=== PATIENT | female | born 1985 | race Caucasian/White ===

== ENCOUNTER 2020-08-08 08:37 | Inpatient (IN) | payer BC, SELFPAY ==
[2020-08-08] VITALS (36 sets, daily range): BP systolic 71–126; BP diastolic 40–78; PULSE 75–128; RESP 16–27; TEMP 36.7–36.9; O2SAT 88–98; BMI 20.7
--- NOTE | 2020-08-08 08:43 | W.ED.CHESTPA ---
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 She tells me on Saturday she began noticing bilateral back pain. 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 She states following that she began developing chest pain and shortness of breath. She states it feels like she has a vice around her chest. Over the weekend she began developing a throbbing headache. She states she does have a history of migraines however this is uncharacteristic. She feels like her headache is worse with bending over. She does not complain of photophobia or visual changes. She reports some mild chronic neck pain but states this is overall at her baseline and is not endorsing neck stiffness. She has had some severe nausea with dry heaves but no active vomiting. She does not complain of abdominal pain or changes in bowel habits. She is not having dysuria, frequency, urgency. She has not had any documented fevers however has noticed feeling diaphoretic and has had chills. Reports severe fatigue and states she has slept much more than usual over the weekend. 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 PMH is significant for ADHD and fibromyalgia. She takes Adderall and [place] for these. MD complaint: chest pain Onset (ago): day(s) Timing of current episode: constant Prior episodes: No Onset: during rest Pain location: other (across and around chest ) Pain radiation: none Quality: tightness Relieving factors: nothing Exacerbating factors: nothing Associated symptoms: Reports dyspnea, nausea and palpitations; Deny abdominal pain, fever(s), syncope or vomiting Treatment prior to arrival: none Risk Factors: Coronary artery disease risk factors: none Thoracic aortic dissection risk factors: none Related Data: On Oral Contraceptives: No Review of Systems Const: Reports: chills, body aches, fatigue and malaise; Denies: fever(s) Eyes: Denies: change in vision, blurry vision or photophobia ENMT: Denies: odynophagia, post nasal drip or sinus pain Card: Reports: chest pain, palpitations and dyspnea on exertion; Denies: irregular heart rhythm, edema, swelling of feet/ankles, lightheadedness, syncope, pre-syncope, orthopnea, leg pain with exertion or acrocyanosis Resp: Reports: dyspnea; Denies: productive cough, non-productive cough, hemoptysis or chest congestion GI: Reports: nausea; Denies: abdominal pain, vomiting or diarrhea : Reports: flank pain; Denies: difficulty voiding, dysuria, urinary frequency, urinary urgency, urinary hesitancy, vaginal odor, vaginal bleeding, vaginal discharge or pelvic pain Musc: Reports: neck pain (chronic) and back pain; Denies: extremity pain, extremity swelling, joint pain or joint swelling Skin/Breast: Denies: rash Neuro: Reports: headache(s); Denies: numbness in extremities, weakness in extremities, sensory changes, lack of coordination, difficulty walking, dizziness or confusion PFSH ED PFSH: Medical History ADHD Fibromyalgia Surgical History (Updated 08/08/20 @ 16:14 by Chuck Troncoso MD) H/O bilateral breast reduction surgery H/O dilation and curettage Family History Other No significant family history Social History Smoking and tobacco status: never smoked Alcohol intake: current Alcohol intake frequency: holidays/special occasions only Substance/Drug Use: never Lives independently: Yes Household members: children Current occupational status: employed Physical Exam Const: COMMON NORMALS: average body habitus, patient oriented x3, no limitations, healthy appearing, alert and well nourished GENERAL APPEARANCE: cooperative and ill appearing ORIENTATION/CONSCIOUSNESS: Yes awake, Yes oriented to person, Yes oriented to place and Yes oriented to time HENMT: COMMON NORMALS: normocephalic, atraumatic and hearing grossly normal bilaterally HEAD & SCALP: normal to inspection, normocephalic and atraumatic FACE & SINUS: normal facial exam Neck/C-Spine: COMMON NORMALS: full ROM, no lymphadenopathy and no meningeal signs CERVICAL SPINE: No Cervical spine tenderness OTHER: pt maintains full ROM of neck although does state this is painful; negative Brudzinski and Kernig signs Chest: COMMONS NORMALS: normal inspection of the chest Resp: COMMON NORMALS: normal respiratory effort and clear to auscultation bilaterally AUSCULTATION: clear to auscultation bilaterally Cardio: COMMON NORMALS: regular rhythm RATE: tachycardic RHYTHM: regular rhythm GI: COMMON NORMALS: Normal to inspection, nondistended, normoactive bowel sounds present, Soft to palpation, No hepatosplenomegaly present and no masses PALPATION: Yes Soft to palpation, Yes Tenderness to palpation present (GI) (mild throughout-non surgical abdomen ) and Yes No hepatosplenomegaly present : BLADDER/KIDNEY EXAM: Yes CVA tenderness bilateral and diffuse Back/Pelvis: GENERAL BACK: Yes CVA tenderness OTHER: TTP bilateral CVA and across lower back Extremity: COMMON NORMALS: normal to inspection, full ROM, capillary refill normal, no calf tenderness and no pedal edema GENERAL: Yes normal exam except as noted Neuro: GIRISH COMA SCALE: document GCS findings Steptoe coma scale eye opening: Spontaneous Steptoe coma scale verbal response: Orientated Steptoe coma scale motor response: Obey commands Girish coma scale total score: 15 COMMON NORMALS: patient oriented x3, CN's II-XII intact bilaterally, moves all extremities, no focal motor deficits and no sensory deficits noted SENSORIUM/ORIENTATION: Yes alert, Yes oriented to person, Yes oriented to place and Yes oriented to time MENINGEAL SIGNS: Yes no meningeal signs SPEECH: speech normal MOTOR EXAM: 5/5 motor strength present throughout Skin: COMMON NORMALS: no rashes or lesions noted GENERAL SKIN EXAM: no rashes or lesions noted Course Vital Signs: Vital signs: Vital Signs Temperature 97.8 F 08/09/20 02:15 Pulse Rate 73 08/09/20 07:00 Respiratory Rate 16 08/09/20 02:12 Blood Pressure 102/69 08/09/20 07:00 Pulse Oximetry 95 08/09/20 07:00 MDM - Chest Pain MDM Narrative: Medical decision making narrative: Patient was noted to have significant abnormalities on her labs. She has leukocytosis. Her lactate was normal however she did have a significantly high CRP of over 400. Her procalcitonin was over 5.5. Her D-dimer is over 4. CTA imaging obtained due to this as well as her complaints of chest pain and shortness of breath as well as clinical findings of tachypnea and tachycardia. CT imaging is negative for PE. She has elevations to her fibrinogen and ferritin. Her glucose was over 250 without a history of diabetes. She had minor decreases in her sodium potassium and chloride. She has acute renal injury. She has nonspecific elevations to her LFTs. Her UA is overwhelmingly positive for a UTI. Clinically she has symptoms related to pyelonephritis. US of her kidneys confirms a right-sided pyelo. Given patient's symptoms, abnormalities of lab work, as well as her employment (she works as an RN) I have a concern for COVID however her rapid was negative. Her CXR is normal. I do not visualize any pulmonary abnormalities that seem consistent with COVID on her CTA. She remains tachycardic and tachypneic as well as hypotensive throughout her stay. Certainly she meets criteria for sepsis. Abnormalities of labs could be secondary to her urosepsis. Patient was started on IV azithromycin and rocephin. I have spoken to Dr. Torres who also evaluated patient and will speak to the hospitalist regarding admission. Lab Data: Labs: Lab Results 08/08/20 08/08/20 08/08/20 Range/Units 08:53 08:53 08:53 WBC 14.9 H (4.0-10.0) 10^3/ uL RBC 3.79 L (4.1-5.3) 10^6/u L Hgb 12.0 (11.5-15.3) g/dL Hct 34.8 L (37.0-47.0) % MCV 91.8 (81-99) fL MCH 31.7 (28.0-34.0) pg MCHC 34.5 (30.0-36.0) g/dL RDW 12.0 L (12.1-15.1) % Plt Count 139 (130-400) 10^3/c mm MPV 11.5 H (7.4-10.4) fL Neut % (Auto) 88.2 % Lymph % (Auto) 3.0 % [place] % (Auto) 6.2 % Eos % (Auto) 1.0 % Baso % (Auto) 0.5 % Neut # (Auto) 13.13 H (1.8-7.7) 10^3/u L Lymph # (Auto) 0.4 L (0.8-4.8) 10^3/u L [place] # (Auto) 0.9 (0.2-0.9) 10^3/u L Eos # (Auto) 0.2 (0.0-0.8) 10^3/u L Baso # (Auto) 0.1 (0.0-0.1) 10^3/u L Nucleated RBC % (a uto) 0 % Nucleated RBCs # 0.0 /100WBC PT (12.1-14.9) SECO NDS INR (0.8-1.2) APTT (23.9-36.7) SECO NDS Fibrinogen (174-498) mg/dL D-Dimer 4.03 H (0-0.59) ug/mIFE U Specimen Type Sample Site ABG pH (7.35-7.45) ABG pCO2 (35-45) mmHg ABG pO2 (80.0-100.0) mmH g ABG HCO3 (22-26) mmol/L ABG O2 Saturation ABG Base Excess (-2.0-2.0) mmol/ L Yayo Test A-a O2 Gradient (5-10) mmHg Hematocrit (37-47) % Hgb O2 Saturation (95-100) % Carboxyhemoglobin (0.4-20.1) %THgb Methemoglobin (0.4-1.5) % Total Hemoglobin (12-16) g/dL Ionized Calcium (1.1-1.4) mmol/L O2 Delivery Device FiO2 % Marketing Traffic Coordinator ID Sodium 132 L (136-145) mmol/L Potassium 3.2 L (3.5-5.1) mmol/L Chloride 96 L (98-107) mmol/L Carbon Dioxide 18 L (22-29) mmol/L Anion Gap 21.2 H (5-19) BUN 17 (6-20) mg/dL Creatinine 1.6 H (0.5-0.9) mg/dL GFR Calculation 37.4 L (90-130) mL/min Glucose 256 H (65-115) mg/dL Estimat Average Gl ucose Hemoglobin A1c (4.0-6.0) % Calculated Osmolal ity 284 L (285-295) mOsm/k g Lactic Acid (0.5-2.2) mmol/L Lactic Acid (Sepsi s) (0.5-2.2) mmol/L Calcium 8.5 (8.5-10.5) mg/dL Ferritin (15-150) ng/mL Total Bilirubin 1.3 H (0.15-1.2) mg/dL AST 19 (0-32) U/L ALT 46 H (0-33) U/L Alkaline Phosphata se 155 H (35-105) IU/L Creatine Kinase (26-192) U/L Troponin T Gen 5 n g/L (0-10) ng/L C-Reactive Protein 426.7 H (0.0-4.9) mg/L Total Protein 6.7 (6.6-8.7) g/dL Albumin 3.7 (3.5-5.2) g/dL Globulin 3.0 (1.3-4.6) g/dL Procalcitonin 5.53 H (0-0.5) ng/mL HCG, Qual (Negative) Urine Color (Yellow) Urine Appearance (CLEAR) Urine pH (5-7) Ur Specific Gravit y (1.005-1.030) Urine Protein (Negative) Urine Glucose (UA) (Normal) Urine Ketones (Negative) Urine Blood (Negative) Urine Nitrate (Negative) Urine Bilirubin (Negative) Urine Urobilinogen (Negative) mg/dL Ur Leukocyte Stacie ase (Negative) Ur Microscopic Ind ic Urine RBC (0-2) /hpf Urine WBC (0-5) /hpf Ur Squamous Epith Cells (0-5) /hpf Ur Transition Epit h Cell /hpf Amorphous Sediment Urine Bacteria (NONE) /hpf Serum Ketones (Negative) Hepatitis A IgM Ab (Nonreactive) Hep Bs Antigen (Nonreactive) Hep B Core IgM Ab (Nonreactive) Hepatitis C Antibo dy (Nonreactive) Influenza Type A A g (Negative) Influenza Type B A g (Negative) SARS-CoV-2 Ag (Rap id) (Negative) 08/08/20 08/08/20 08/08/20 Range/Units 08:53 08:53 08:53 WBC (4.0-10.0) 10^3/ uL RBC (4.1-5.3) 10^6/u L Hgb (11.5-15.3) g/dL Hct (37.0-47.0) % MCV (81-99) fL MCH (28.0-34.0) pg MCHC (30.0-36.0) g/dL RDW (12.1-15.1) % Plt Count (130-400) 10^3/c mm MPV (7.4-10.4) fL Neut % (Auto) % Lymph % (Auto) % [place] % (Auto) % Eos % (Auto) % Baso % (Auto) % Neut # (Auto) (1.8-7.7) 10^3/u L Lymph # (Auto) (0.8-4.8) 10^3/u L [place] # (Auto) (0.2-0.9) 10^3/u L Eos # (Auto) (0.0-0.8) 10^3/u L Baso # (Auto) (0.0-0.1) 10^3/u L Nucleated RBC % (a uto) % Nucleated RBCs # /100WBC PT 13.20 (12.1-14.9) SECO NDS INR 0.97 (0.8-1.2) APTT 36.6 (23.9-36.7) SECO NDS Fibrinogen 855 H (174-498) mg/dL D-Dimer (0-0.59) ug/mIFE U Specimen Type Sample Site ABG pH (7.35-7.45) ABG pCO2 (35-45) mmHg ABG pO2 (80.0-100.0) mmH g ABG HCO3 (22-26) mmol/L ABG O2 Saturation ABG Base Excess (-2.0-2.0) mmol/ L Yayo Test A-a O2 Gradient (5-10) mmHg Hematocrit (37-47) % Hgb O2 Saturation (95-100) % Carboxyhemoglobin (0.4-20.1) %THgb Methemoglobin (0.4-1.5) % Total Hemoglobin (12-16) g/dL Ionized Calcium (1.1-1.4) mmol/L O2 Delivery Device FiO2 % Marketing Traffic Coordinator ID Sodium (136-145) mmol/L Potassium (3.5-5.1) mmol/L Chloride (98-107) mmol/L Carbon Dioxide (22-29) mmol/L Anion Gap (5-19) BUN (6-20) mg/dL Creatinine (0.5-0.9) mg/dL GFR Calculation (90-130) mL/min Glucose (65-115) mg/dL Estimat Average Gl ucose Hemoglobin A1c (4.0-6.0) % Calculated Osmolal ity (285-295) mOsm/k g Lactic Acid (0.5-2.2) mmol/L Lactic Acid (Sepsi s) (0.5-2.2) mmol/L Calcium (8.5-10.5) mg/dL Ferritin (15-150) ng/mL Total Bilirubin (0.15-1.2) mg/dL AST (0-32) U/L ALT (0-33) U/L Alkaline Phosphata se (35-105) IU/L Creatine Kinase (26-192) U/L Troponin T Gen 5 n g/L 6 (0-10) ng/L C-Reactive Protein (0.0-4.9) mg/L Total Protein (6.6-8.7) g/dL Albumin (3.5-5.2) g/dL Globulin (1.3-4.6) g/dL Procalcitonin (0-0.5) ng/mL HCG, Qual Negative (Negative) Urine Color (Yellow) Urine Appearance (CLEAR) Urine pH (5-7) Ur Specific Gravit y (1.005-1.030) Urine Protein (Negative) Urine Glucose (UA) (Normal) Urine Ketones (Negative) Urine Blood (Negative) Urine Nitrate (Negative) Urine Bilirubin (Negative) Urine Urobilinogen (Negative) mg/dL Ur Leukocyte Stacie ase (Negative) Ur Microscopic Ind ic Urine RBC (0-2) /hpf Urine WBC (0-5) /hpf Ur Squamous Epith Cells (0-5) /hpf Ur Transition Epit h Cell /hpf Amorphous Sediment Urine Bacteria (NONE) /hpf Serum Ketones (Negative) Hepatitis A IgM Ab (Nonreactive) Hep Bs Antigen (Nonreactive) Hep B Core IgM Ab (Nonreactive) Hepatitis C Antibo dy (Nonreactive) Influenza Type A A g (Negative) Influenza Type B A g (Negative) SARS-CoV-2 Ag (Rap id) (Negative) 08/08/20 08/08/20 08/08/20 Range/Units 08:53 08:53 08:53 WBC (4.0-10.0) 10^3/ uL RBC (4.1-5.3) 10^6/u L Hgb (11.5-15.3) g/dL Hct (37.0-47.0) % MCV (81-99) fL MCH (28.0-34.0) pg MCHC (30.0-36.0) g/dL RDW (12.1-15.1) % Plt Count (130-400) 10^3/c mm MPV (7.4-10.4) fL Neut % (Auto) % Lymph % (Auto) % [place] % (Auto) % Eos % (Auto) % Baso % (Auto) % Neut # (Auto) (1.8-7.7) 10^3/u L Lymph # (Auto) (0.8-4.8) 10^3/u L [place] # (Auto) (0.2-0.9) 10^3/u L Eos # (Auto) (0.0-0.8) 10^3/u L Baso # (Auto) (0.0-0.1) 10^3/u L Nucleated RBC % (a uto) % Nucleated RBCs # /100WBC PT (12.1-14.9) SECO NDS INR (0.8-1.2) APTT (23.9-36.7) SECO NDS Fibrinogen (174-498) mg/dL D-Dimer (0-0.59) ug/mIFE U Specimen Type Sample Site ABG pH (7.35-7.45) ABG pCO2 (35-45) mmHg ABG pO2 (80.0-100.0) mmH g ABG HCO3 (22-26) mmol/L ABG O2 Saturation ABG Base Excess (-2.0-2.0) mmol/ L Yayo Test A-a O2 Gradient (5-10) mmHg Hematocrit (37-47) % Hgb O2 Saturation (95-100) % Carboxyhemoglobin (0.4-20.1) %THgb Methemoglobin (0.4-1.5) % Total Hemoglobin (12-16) g/dL Ionized Calcium (1.1-1.4) mmol/L O2 Delivery Device FiO2 % Marketing Traffic Coordinator ID Sodium (136-145) mmol/L Potassium (3.5-5.1) mmol/L Chloride (98-107) mmol/L Carbon Dioxide (22-29) mmol/L Anion Gap (5-19) BUN (6-20) mg/dL Creatinine (0.5-0.9) mg/dL GFR Calculation (90-130) mL/min Glucose (65-115) mg/dL Estimat Average Gl ucose 88 Hemoglobin A1c 4.7 (4.0-6.0) % Calculated Osmolal ity (285-295) mOsm/k g Lactic Acid (0.5-2.2) mmol/L Lactic Acid (Sepsi s) (0.5-2.2) mmol/L Calcium (8.5-10.5) mg/dL Ferritin (15-150) ng/mL Total Bilirubin (0.15-1.2) mg/dL AST (0-32) U/L ALT (0-33) U/L Alkaline Phosphata se (35-105) IU/L Creatine Kinase (26-192) U/L Troponin T Gen 5 n g/L (0-10) ng/L C-Reactive Protein (0.0-4.9) mg/L Total Protein (6.6-8.7) g/dL Albumin (3.5-5.2) g/dL Globulin (1.3-4.6) g/dL Procalcitonin (0-0.5) ng/mL HCG, Qual (Negative) Urine Color (Yellow) Urine Appearance (CLEAR) Urine pH (5-7) Ur Specific Gravit y (1.005-1.030) Urine Protein (Negative) Urine Glucose (UA) (Normal) Urine Ketones (Negative) Urine Blood (Negative) Urine Nitrate (Negative) Urine Bilirubin (Negative) Urine Urobilinogen (Negative) mg/dL Ur Leukocyte Stacie ase (Negative) Ur Microscopic Ind ic Urine RBC (0-2) /hpf Urine WBC (0-5) /hpf Ur Squamous Epith Cells (0-5) /hpf Ur Transition Epit h Cell /hpf Amorphous Sediment Urine Bacteria (NONE) /hpf Serum Ketones Negative (Negative) Hepatitis A IgM Ab Non-reactive (Nonreactive) Hep Bs Antigen Non-reactive (Nonreactive) Hep B Core IgM Ab Non-reactive (Nonreactive) Hepatitis C Antibo dy Non-reactive (Nonreactive) Influenza Type A A g (Negative) Influenza Type B A g (Negative) SARS-CoV-2 Ag (Rap id) (Negative) 08/08/20 08/08/20 08/08/20 Range/Units 08:53 08:57 09:08 WBC (4.0-10.0) 10^3/ uL RBC (4.1-5.3) 10^6/u L Hgb (11.5-15.3) g/dL Hct (37.0-47.0) % MCV (81-99) fL MCH (28.0-34.0) pg MCHC (30.0-36.0) g/dL RDW (12.1-15.1) % Plt Count (130-400) 10^3/c mm MPV (7.4-10.4) fL Neut % (Auto) % Lymph % (Auto) % [place] % (Auto) % Eos % (Auto) % Baso % (Auto) % Neut # (Auto) (1.8-7.7) 10^3/u L Lymph # (Auto) (0.8-4.8) 10^3/u L [place] # (Auto) (0.2-0.9) 10^3/u L Eos # (Auto) (0.0-0.8) 10^3/u L Baso # (Auto) (0.0-0.1) 10^3/u L Nucleated RBC % (a uto) % Nucleated RBCs # /100WBC PT (12.1-14.9) SECO NDS INR (0.8-1.2) APTT (23.9-36.7) SECO NDS Fibrinogen (174-498) mg/dL D-Dimer (0-0.59) ug/mIFE U Specimen Type Sample Site ABG pH (7.35-7.45) ABG pCO2 (35-45) mmHg ABG pO2 (80.0-100.0) mmH g ABG HCO3 (22-26) mmol/L ABG O2 Saturation ABG Base Excess (-2.0-2.0) mmol/ L Yayo Test A-a O2 Gradient (5-10) mmHg Hematocrit (37-47) % Hgb O2 Saturation (95-100) % Carboxyhemoglobin (0.4-20.1) %THgb Methemoglobin (0.4-1.5) % Total Hemoglobin (12-16) g/dL Ionized Calcium (1.1-1.4) mmol/L O2 Delivery Device FiO2 % Marketing Traffic Coordinator ID Sodium (136-145) mmol/L Potassium (3.5-5.1) mmol/L Chloride (98-107) mmol/L Carbon Dioxide (22-29) mmol/L Anion Gap (5-19) BUN (6-20) mg/dL Creatinine (0.5-0.9) mg/dL GFR Calculation (90-130) mL/min Glucose (65-115) mg/dL Estimat Average Gl ucose Hemoglobin A1c (4.0-6.0) % Calculated Osmolal ity (285-295) mOsm/k g Lactic Acid (0.5-2.2) mmol/L Lactic Acid (Sepsi s) (0.5-2.2) mmol/L Calcium (8.5-10.5) mg/dL Ferritin 306 H (15-150) ng/mL Total Bilirubin (0.15-1.2) mg/dL AST (0-32) U/L ALT (0-33) U/L Alkaline Phosphata se (35-105) IU/L Creatine Kinase 38 (26-192) U/L Troponin T Gen 5 n g/L (0-10) ng/L C-Reactive Protein (0.0-4.9) mg/L Total Protein (6.6-8.7) g/dL Albumin (3.5-5.2) g/dL Globulin (1.3-4.6) g/dL Procalcitonin (0-0.5) ng/mL HCG, Qual (Negative) Urine Color Yellow (Yellow) Urine Appearance Cloudy (CLEAR) Urine pH 5 (5-7) Ur Specific Gravit y 1.010 (1.005-1.030) Urine Protein 2+ H (Negative) Urine Glucose (UA) Norm (Normal) Urine Ketones Negative (Negative) Urine Blood 3+ H (Negative) Urine Nitrate Negative (Negative) Urine Bilirubin Neg (Negative) Urine Urobilinogen Norm (Negative) mg/dL Ur Leukocyte Stacie ase 2+ H (Negative) Ur Microscopic Ind ic Urine RBC 0-4 H (0-2) /hpf Urine WBC Too numerous to c nt H (0-5) /hpf Ur Squamous Epith Cells 25-40 H (0-5) /hpf Ur Transition Epit h Cell /hpf Amorphous Sediment Not Reportable Urine Bacteria 2+ H (NONE) /hpf Serum Ketones (Negative) Hepatitis A IgM Ab (Nonreactive) Hep Bs Antigen (Nonreactive) Hep B Core IgM Ab (Nonreactive) Hepatitis C Antibo dy (Nonreactive) Influenza Type A A g (Negative) Influenza Type B A g (Negative) SARS-CoV-2 Ag (Rap id) (Negative) 08/08/20 08/08/20 08/08/20 Range/Units 09:34 09:39 10:58 WBC (4.0-10.0) 10^3/ uL RBC (4.1-5.3) 10^6/u L Hgb (11.5-15.3) g/dL Hct (37.0-47.0) % MCV (81-99) fL MCH (28.0-34.0) pg MCHC (30.0-36.0) g/dL RDW (12.1-15.1) % Plt Count (130-400) 10^3/c mm MPV (7.4-10.4) fL Neut % (Auto) % Lymph % (Auto) % [place] % (Auto) % Eos % (Auto) % Baso % (Auto) % Neut # (Auto) (1.8-7.7) 10^3/u L Lymph # (Auto) (0.8-4.8) 10^3/u L [place] # (Auto) (0.2-0.9) 10^3/u L Eos # (Auto) (0.0-0.8) 10^3/u L Baso # (Auto) (0.0-0.1) 10^3/u L Nucleated RBC % (a uto) % Nucleated RBCs # /100WBC PT (12.1-14.9) SECO NDS INR (0.8-1.2) APTT (23.9-36.7) SECO NDS Fibrinogen (174-498) mg/dL D-Dimer (0-0.59) ug/mIFE U Specimen Type Sample Site ABG pH (7.35-7.45) ABG pCO2 (35-45) mmHg ABG pO2 (80.0-100.0) mmH g ABG HCO3 (22-26) mmol/L ABG O2 Saturation ABG Base Excess (-2.0-2.0) mmol/ L Yayo Test A-a O2 Gradient (5-10) mmHg Hematocrit (37-47) % Hgb O2 Saturation (95-100) % Carboxyhemoglobin (0.4-20.1) %THgb Methemoglobin (0.4-1.5) % Total Hemoglobin (12-16) g/dL Ionized Calcium (1.1-1.4) mmol/L O2 Delivery Device FiO2 % Marketing Traffic Coordinator ID Sodium (136-145) mmol/L Potassium (3.5-5.1) mmol/L Chloride (98-107) mmol/L Carbon Dioxide (22-29) mmol/L Anion Gap (5-19) BUN (6-20) mg/dL Creatinine (0.5-0.9) mg/dL GFR Calculation (90-130) mL/min Glucose (65-115) mg/dL Estimat Average Gl ucose Hemoglobin A1c (4.0-6.0) % Calculated Osmolal ity (285-295) mOsm/k g Lactic Acid 2.2 (0.5-2.2) mmol/L Lactic Acid (Sepsi s) (0.5-2.2) mmol/L Calcium (8.5-10.5) mg/dL Ferritin (15-150) ng/mL Total Bilirubin (0.15-1.2) mg/dL AST (0-32) U/L ALT (0-33) U/L Alkaline Phosphata se (35-105) IU/L Creatine Kinase (26-192) U/L Troponin T Gen 5 n g/L (0-10) ng/L C-Reactive Protein (0.0-4.9) mg/L Total Protein (6.6-8.7) g/dL Albumin (3.5-5.2) g/dL Globulin (1.3-4.6) g/dL Procalcitonin (0-0.5) ng/mL HCG, Qual (Negative) Urine Color (Yellow) Urine Appearance (CLEAR) Urine pH (5-7) Ur Specific Gravit y (1.005-1.030) Urine Protein (Negative) Urine Glucose (UA) (Normal) Urine Ketones (Negative) Urine Blood (Negative) Urine Nitrate (Negative) Urine Bilirubin (Negative) Urine Urobilinogen (Negative) mg/dL Ur Leukocyte Stacie ase (Negative) Ur Microscopic Ind ic Urine RBC (0-2) /hpf Urine WBC (0-5) /hpf Ur Squamous Epith Cells (0-5) /hpf Ur Transition Epit h Cell /hpf Amorphous Sediment Urine Bacteria (NONE) /hpf Serum Ketones (Negative) Hepatitis A IgM Ab (Nonreactive) Hep Bs Antigen (Nonreactive) Hep B Core IgM Ab (Nonreactive) Hepatitis C Antibo dy (Nonreactive) Influenza Type A A g Negative (Negative) Influenza Type B A g Negative (Negative) SARS-CoV-2 Ag (Rap id) Negative (Negative) 08/08/20 08/08/20 08/08/20 Range/Units 11:51 12:27 12:27 WBC (4.0-10.0) 10^3/ uL RBC (4.1-5.3) 10^6/u L Hgb (11.5-15.3) g/dL Hct (37.0-47.0) % MCV (81-99) fL MCH (28.0-34.0) pg MCHC (30.0-36.0) g/dL RDW (12.1-15.1) % Plt Count (130-400) 10^3/c mm MPV (7.4-10.4) fL Neut % (Auto) % Lymph % (Auto) % [place] % (Auto) % Eos % (Auto) % Baso % (Auto) % Neut # (Auto) (1.8-7.7) 10^3/u L Lymph # (Auto) (0.8-4.8) 10^3/u L [place] # (Auto) (0.2-0.9) 10^3/u L Eos # (Auto) (0.0-0.8) 10^3/u L Baso # (Auto) (0.0-0.1) 10^3/u L Nucleated RBC % (a uto) % Nucleated RBCs # /100WBC PT (12.1-14.9) SECO NDS INR (0.8-1.2) APTT (23.9-36.7) SECO NDS Fibrinogen (174-498) mg/dL D-Dimer (0-0.59) ug/mIFE U Specimen Type Arterial Sample Site Radial, right ABG pH 7.34 L (7.35-7.45) ABG pCO2 27.6 L (35-45) mmHg ABG pO2 83.0 (80.0-100.0) mmH g ABG HCO3 14.8 L (22-26) mmol/L ABG O2 Saturation 96.9 ABG Base Excess -9.5 L (-2.0-2.0) mmol/ L [place] Test Pos A-a O2 Gradient 4.0 L (5-10) mmHg Hematocrit 39.4 (37-47) % Hgb O2 Saturation 95.6 (95-100) % Carboxyhemoglobin 0.6 (0.4-20.1) %THgb Methemoglobin 0.9 (0.4-1.5) % Total Hemoglobin 12.8 (12-16) g/dL Ionized Calcium 1.1 (1.1-1.4) mmol/L O2 Delivery Device Room air FiO2 21.0 % Marketing Traffic Coordinator ID [email or web address] Sodium 136.0 (136-145) mmol/L Potassium 4.3 (3.5-5.1) mmol/L Chloride (98-107) mmol/L Carbon Dioxide (22-29) mmol/L Anion Gap (5-19) BUN (6-20) mg/dL Creatinine (0.5-0.9) mg/dL GFR Calculation (90-130) mL/min Glucose 163.0 H (65-115) mg/dL Estimat Average Gl ucose Hemoglobin A1c (4.0-6.0) % Calculated Osmolal ity (285-295) mOsm/k g Lactic Acid (0.5-2.2) mmol/L Lactic Acid (Sepsi s) 1.3 (0.5-2.2) mmol/L Calcium (8.5-10.5) mg/dL Ferritin (15-150) ng/mL Total Bilirubin (0.15-1.2) mg/dL AST (0-32) U/L ALT (0-33) U/L Alkaline Phosphata se (35-105) IU/L Creatine Kinase (26-192) U/L Troponin T Gen 5 n g/L (0-10) ng/L C-Reactive Protein (0.0-4.9) mg/L Total Protein (6.6-8.7) g/dL Albumin (3.5-5.2) g/dL Globulin (1.3-4.6) g/dL Procalcitonin (0-0.5) ng/mL HCG, Qual (Negative) Urine Color Yellow (Yellow) Urine Appearance Hazy A (CLEAR) Urine pH 5 (5-7) Ur Specific Gravit y 1.000 L (1.005-1.030) Urine Protein 1+ H (Negative) Urine Glucose (UA) Norm (Normal) Urine Ketones Negative (Negative) Urine Blood 2+ H (Negative) Urine Nitrate Positive H (Negative) Urine Bilirubin Neg (Negative) Urine Urobilinogen Norm (Negative) mg/dL Ur Leukocyte Stacie ase 2+ H (Negative) Ur Microscopic Ind ic Cancelled Urine RBC 0-4 H (0-2) /hpf Urine WBC >100 H (0-5) /hpf Ur Squamous Epith Cells 0-4 H (0-5) /hpf Ur Transition Epit h Cell 0-4 /hpf Amorphous Sediment Not Reportable Urine Bacteria 2+ H (NONE) /hpf Serum Ketones (Negative) Hepatitis A IgM Ab (Nonreactive) Hep Bs Antigen (Nonreactive) Hep B Core IgM Ab (Nonreactive) Hepatitis C Antibo dy (Nonreactive) Influenza Type A A g (Negative) Influenza Type B A g (Negative) SARS-CoV-2 Ag (Rap id) (Negative) Imaging Data^: CXR: Radiologist's impression: [address] [address] XRay Report Signed Patient: Ranjith Cordero #: [id number] : 1985Acct#:[id number] Age/Sex: 34 / FADM Date: 08/08/20 Loc: ERRoom/Bed: Attending Dr: Ordering Provider/Ordering MD: Stephanie Aguirre Date of Service: 08/08/20 Procedure(s): XR chest 1V portable [id number] Accession Number(s): [id number] Report Number: [id number] WS: [id number] PORTABLE CHEST HISTORY: chest pain/SOB COMPARISON: None available. Lungs are clear and well expanded. No pleural effusion or pneumothorax. Cardiac size: Normal. Mediastinum/Aorta: Normal mediastinum. No osseous abnormality seen. XR/XR chest 1V portable [id number] IMPRESSION: Unremarkable portable chest. Dictated By:Virginie West DO Signed By:Virginie West DOSigned Date/Time:08/08/20922 DD/ 2 CT Head: Radiologist's impression: [address] [address] [address] Scan Report Signed Patient: Ranjith Cordero #: [id number] : 1985Acct#:[id number] Age/Sex: 34 / FADM Date: 08/08/20 Loc: ERRoom/Bed: Attending Dr: Ordering Provider/Ordering MD: Stephanie Aguirre Date of Service: 08/08/20 Procedure(s): CT head wo con* [id number] Accession Number(s): [id number] Report Number: [id number] WS: [id number] CT HEAD NONCONTRAST HISTORY: SKINNER; sweats/chills; worse with bending over TECHNIQUE: Contiguous axial imaging performed through the brain in 2.5 mm imaging. Bone and soft tissue windows. Sagittal and coronal reformats reviewed. All CT scans at [facility] use at least one of these dose optimization techniques: automated exposure control; mA and/or kV adjustment per patient size (includes targeted exams where dose is matched to clinical indication); or iterative reconstruction. DLP: 762.43 mGy.cm COMPARISON: None available. No acute intracranial hemorrhage, midline shift or mass effect. No atrophy or prior infarcts or herniation. Ventricles: Normal size with no hydrocephalus. Paranasal sinuses: As visualized are clear. Mastoid air cells: Well pneumatized. Calvarium and scalp: Skull is intact with no soft tissue edema or swelling. CT/CT head wo con* [id number] IMPRESSION: Negative head CT. Dictated By:Virginie West DO Signed By:Virginie West DOSigned Date/Time:08/08/20 0933 DD/ 0931 CTA Chest: Radiologist's impression: [facility] [address] [place] [address] [address] Scan Report Signed Patient: Ranjith Cordero #: [id number] : 1985Acct#:[id number] Age/Sex: 34 / FADM Date: 08/08/20 Loc: ERRoom/Bed: Attending Dr: Ordering Provider/Ordering MD: Stephanie Aguirre Date of Service: 08/08/20 Procedure(s): CT angio chest PE protcl [id number] Accession Number(s): [id number] Report Number: [id number] WS: [id number] CT CHEST ANGIOGRAPHY WITH REFORMATS HISTORY: chest pain, SOB, tachycardia; elevated d dimer TECHNIQUE: Contiguous axial images are obtained through the chest during arterial injection of intravenous contrast. Images are reconstructed to evaluate the pulmonary arteries. MIP imaging also reviewed. All CT scans at [facility] use at least one of these dose optimization techniques: automated exposure control; mA and/or kV adjustment per patient size (includes targeted exams where dose is matched to clinical indication); or iterative reconstruction. CONTRAST: Omnipaque 350; 95 mL IV. DLP: 384.97 mGy.cm COMPARISON: None available. Adequate opacification of the pulmonary arteries. Centrally through the segmental branches no pulmonary embolism is identified. Thoracic aorta and pulmonary artery sizes are normal. No RIGHT heart strain. No pericardial or pleural effusion. Lungs are clear. No pneumothorax or pneumonia. No adenopathy. Liver is enlarged extending across the midline. Spleen is top normal size. No osteoblastic or osteolytic bone disease. CT/CT angio chest PE protcl [id number] IMPRESSION: 1. No pulmonary embolism. 2. No pneumonia. 3. Enlarged liver. No bile duct dilatation appreciated. Ultrasound evaluation may be helpful. Dictated By:Virginie West DO Signed By:Virginie West DOSigned Date/Time:08/08/20 1042 DD/ 1037 US renal: Radiologist's impression: [facility] [address] [place] [address] Ultrasound Report Signed Patient: Ranjith Cordero #: [id number] : 1985Acct#:[id number] Age/Sex: 34 / FADM Date: 08/08/20 Loc: ERRoom/Bed: Attending Dr: Ordering Provider/Ordering MD: Stephanie Aguirre Date of Service: 08/08/20 Procedure(s): US renal BI* [id number] Accession Number(s): [id number] Report Number: [id number] WS: [id number] RENAL ULTRASOUND HISTORY: flank pain, UTI, sepsis, acute renal insufficiency COMPARISON: None available. TECHNIQUE: 2-D and color Doppler imaging of the kidney submitted. Right kidney: 9.4 cm x 6.0 cm x 5.4 cm. RIGHT kidney is very slightly enlarged with loss of the normal cortical medullary junction. Small amount of increased fluid in the renal pelvis. No high-grade stenosis. No abscess. Left kidney: 10.7 cm x 6.1 cm x 7.1 cm. Normal echogenicity with no hydronephrosis or mass. Aorta: Normal. Urinary Bladder: Normal distention. US/US renal BI* [id number] IMPRESSION: 1. Early changes of a mild pyelonephritis involving the RIGHT kidney are suspected. 2. No abscess or high-grade obstruction. Dictated By:Virginie West DO Signed By:Virginie West DOSigned Date/Time:08/08/20 1141 DD/ 1139 EKG Data^: EKG 1: EKG interpretation date: 08/08/20 EKG interpretation time: 08:45 Interpretation: Sinus tachycardia with short MT interval Rate [address] elevation or depression changes noted Discharge Plan Discharge Patient Disposition: Admitted As Inpatient Admit Provider: Chuck Troncoso Clinical Impression: Pyelonephritis, Sepsis, Acute kidney injury, Hyperglycemia, Elevated C-reactive protein Condition: Stable Coding Level of Care Code ED Refractory Specialist for Chg Fwd Exam Comprehensive
--- NOTE | 2020-08-08 08:59 | CT_ITS ---
WS: [id number] CT HEAD NONCONTRAST HISTORY: SKINNER; sweats/chills; worse with bending over TECHNIQUE: Contiguous axial imaging performed through the brain in 2.5 mm imaging. Bone and soft tiss ue windows. Sagittal and coronal reformats reviewed. All CT scans at [facility] use at le ast one of these dose optimization techniques: automated exposure control; mA and/or kV adjustment pe r patient size (includes targeted exams where dose is matched to clinical indication); or iterative r econstruction. DLP: 762.43 mGy.cm COMPARISON: None available. No acute intracranial hemorrhage, midline shift or mass effect. No atrophy or prior infarcts or herniation. Ventricles: Normal size with no hydrocephalus. Paranasal sinuses: As visualized are clear. Mastoid air cells: Well pneumatized. Calvarium and scalp: Skull is intact with no soft tissue edema or swelling. CT/CT head wo con* [id number] IMPRESSION: Negative head CT.
--- NOTE | 2020-08-08 09:00 | XR_ITS ---
WS: [id number] PORTABLE CHEST HISTORY: chest pain/SOB COMPARISON: None available. Lungs are clear and well expanded. No pleural effusion or pneumothorax. Cardiac size: Normal. Mediastinum/Aorta: Normal mediastinum. No osseous abnormality seen. XR/XR chest 1V portable [id number] IMPRESSION: Unremarkable portable chest.
--- NOTE | 2020-08-08 09:01 | ECG_ITS ---
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 Measurements Intervals [place] Rate: 113 P: 42 ID: 104 QRS: 70 QRSD: 73 T: 57 QT: 296 QTc: 406 Interpretive Statements SINUS TACHYCARDIA WITH SHORT ID INTERVAL NONSPECIFIC T-WAVE ABNORMALITY ABNORMAL RHYTHM ECG No previous ECG available for comparison Electronically Signed On 08-08-2020 20:14:09 CDT by Tae Michaels M.D. [id number]
[2020-08-08 09:12] LABS: Basophils # 0.1 10^3/uL (0.0-0.1); Basophils % 0.5 %; Eosinophils # 0.2 10^3/uL (0.0-0.8); Hematocrit 34.8 % (37.0-47.0); Lymphocytes # 0.4 10^3/uL (0.8-4.8); Mean Corpuscular HGB Conc 34.5 g/dL (30.0-36.0); Mean Corpuscular Hemoglobin 31.7 pg (28.0-34.0); Mean Corpuscular Volume 91.8 fL (81-99); Mean Platelet Volume 11.5 fL (7.4-10.4); Monocytes # 0.9 10^3/uL (0.2-0.9); Monocytes % 6.2 %; Neutrophils # 13.13 10^3/uL (1.8-7.7); Neutrophils % 88.2 %; Nucleated Red Blood Cells % 0 %; Platelet Count 139 10^3/cmm (130-400); Red Blood Count 3.79 10^6/uL (4.1-5.3); White Blood Count 14.9 10^3/uL (4.0-10.0)
[2020-08-08 09:26] LABS: D Dimer 4.03 ug/mIFEU (0-0.59)
[2020-08-08 09:27] LABS: HCG, Serum Qual Negative (Negative)
[2020-08-08 09:31] LABS: Troponin T (5th) Once 6 ng/L (0-10)
[2020-08-08] MEDS: sodium chloride 0.9% 1,000 ML 999 ML IV ×3 (09:31→18:08)
--- NOTE | 2020-08-08 09:31 | CT_ITS ---
WS: [id number] CT CHEST ANGIOGRAPHY WITH REFORMATS HISTORY: chest pain, SOB, tachycardia; elevated d dimer TECHNIQUE: Contiguous axial images are obtained through the chest during arterial injection of intrav enous contrast. Images are reconstructed to evaluate the pulmonary arteries. MIP imaging also reviewe d. All CT scans at [facility] use at least one of these dose optimization techniques: aut omated exposure control; mA and/or kV adjustment per patient size (includes targeted exams where dose is matched to clinical indication); or iterative reconstruction. CONTRAST: Omnipaque 350; 95 mL IV. DLP: 384.97 mGy.cm COMPARISON: None available. Adequate opacification of the pulmonary arteries. Centrally through the segmental branches no pulmona ry embolism is identified. Thoracic aorta and pulmonary artery sizes are normal. No RIGHT heart strai n. No pericardial or pleural effusion. Lungs are clear. No pneumothorax or pneumonia. No adenopathy. Liver is enlarged extending across the midline. Spleen is top normal size. No osteoblastic or osteoly tic bone disease. CT/CT angio chest PE protcl [id number] IMPRESSION: 1. No pulmonary embolism. 2. No pneumonia. 3. Enlarged liver. No bile duct dilatation appreciated. Ultrasound evaluation may be helpful.
[2020-08-08 09:35] LABS: Procalcitonin 5.53 ng/mL (0-0.5)
[2020-08-08 09:51] LABS: Alanine Aminotransferase 46 U/L (0-33); Albumin Level 3.7 g/dL (3.5-5.2); Alkaline Phosphatase 155 IU/L (35-105); Anion Gap 21.2 (5-19); Aspartate Amino Transferase 19 U/L (0-32); Blood Urea Nitrogen 17 mg/dL (6-20); Calcium 8.5 mg/dL (8.5-10.5); Carbon Dioxide 18 mmol/L (22-29); Chloride 96 mmol/L (98-107); Glomerular Filtration Rate 37.4 mL/min (90-130); Glucose 256 mg/dL (65-115); Osmolality Calculated 284 mOsm/kg (285-295); Potassium 3.2 mmol/L (3.5-5.1); Sodium 132 mmol/L (136-145); Total Bilirubin 1.3 mg/dL (0.15-1.2); Total Protein 6.7 g/dL (6.6-8.7)
[2020-08-08 10:01] LABS: Lactic Sepsis W/Reflex 2.2 mmol/L (0.5-2.2)
[2020-08-08 10:04] LABS: C Reactive Protein 426.7 mg/L (0.0-4.9)
[2020-08-08 10:24] LABS: Add Urine Microscopic? YES; Bilirubin Urine Neg (Negative); Blood Urine 3+ (Negative); Glucose Urine UA Norm (Normal); Ketones Urine Negative (Negative); Leukocyte Esterase Urine 2+ (Negative); Nitrate Urine Negative (Negative); Protein Urine 2+ (Negative); Urine Appearance Cloudy (CLEAR); Urine Color Yellow (Yellow); Urobilinogen Urine Norm (Negative); pH Urine 5 (5-7)
[2020-08-08 10:25] LABS: RBC Urine 0-4 /hpf (0-2); Squamous Epithelial Cell Urine 25-40 /hpf (0-5); WBC Urine TOO NUMEROUS TO CNT /hpf (0-5)
[2020-08-08 10:26] LABS: Add Urine Culture? No; Bacteria Urine 2+ /hpf
[2020-08-08 10:27] LABS: Ferritin 306 ng/mL (15-150)
[2020-08-08] MEDS: iohexol 350 mg/mL 100 mL Btl IV (10:37)
--- NOTE | 2020-08-08 10:42 | US_ITS ---
WS: [id number] RENAL ULTRASOUND HISTORY: flank pain, UTI, sepsis, acute renal insufficiency COMPARISON: None available. TECHNIQUE: 2-D and color Doppler imaging of the kidney submitted. Right kidney: 9.4 cm x 6.0 cm x 5.4 cm. RIGHT kidney is very slightly enlarged with loss of the normal cortical medullary junction. Small yariel unt of increased fluid in the renal pelvis. No high-grade stenosis. No abscess. Left kidney: 10.7 cm x 6.1 cm x 7.1 cm. Normal echogenicity with no hydronephrosis or mass. Aorta: Normal. Urinary Bladder: Normal distention. US/US renal BI* [id number] IMPRESSION: 1. Early changes of a mild pyelonephritis involving the RIGHT kidney are suspe cted. 2. No abscess or high-grade obstruction.
[2020-08-08] MEDS: cefTRIAXone 1,000 MG in sodium chloride 0.9% (plus) 50 ML 100 MG IV (10:47)
[2020-08-08] MEDS: ondansetron 2 mg/ML SDV 2 mL 4 MG IVP ×2 (10:48→15:10)
[2020-08-08] MEDS: morphine 4 mg/mL SDV 1 mL IVP ×3 (10:48→17:43)
[2020-08-08 10:56] LABS: INR 0.97 (0.8-1.2)
[2020-08-08 10:57] LABS: Fibrinogen 855 mg/dL (174-498); Partial Thromboplastin Time 36.6 SECONDS (23.9-36.7)
[2020-08-08] MEDS: azithromycin 500 MG in sodium chloride 0.9% 250 ML 250 MG IV (11:20)
[2020-08-08 11:34] LABS: Reflex Lactate Order REFLEX LACTIC ORDERD
[2020-08-08 11:37] LABS: Influenza A by IFA Negative (Negative); Influenza B by IFA Negative (Negative)
[2020-08-08 11:38] LABS: SARS Covid-2 Antigen Negative (Negative)
[2020-08-08 12:24] LABS: Lactic Acid level (Lactate) 1.3 mmol/L (0.5-2.2)
[2020-08-08 12:36] LABS: ABG PCO2 27.6 mmHg (35-45); ABG PH Result 7.34 (7.35-7.45); Arterial Blood Gas Hematocrit 39.4 % (37-47); Base Excess ABG -9.5 mmol/L (-2.0-2.0); Blood Gas Allen Test Pos; Blood Gas Operator Identificat glc; Blood Gas Sample Site Radial, right; Blood Gas Sample Type Arterial; Carboxyhemoglobin 0.6 %THgb (0.4-20.1); HCO3 ABG 14.8 mmol/L (22-26); HGB O2 Sat 95.6 % (95-100); Ionized Calcium Level - ABG 1.1 mmol/L (1.1-1.4); Methemoglobin 0.9 % (0.4-1.5); Oxygen Device ROOM AIR; Oxygen Saturation ABG 96.9; Potassium Level - ABG 4.3 mmol/L (3.5-5.0); Total Hemoglobin 12.8 g/dL (12-16)
[2020-08-08 12:59] LABS: Blood Urine 2+ (Negative); Glucose Urine UA Norm (Normal); Ketones Urine Negative (Negative); Protein Urine 1+ (Negative); Urine Appearance Hazy (CLEAR); Urine Color Yellow (Yellow); pH Urine 5 (5-7)
[2020-08-08 13:00] LABS: Bilirubin Urine Neg (Negative); Leukocyte Esterase Urine 2+ (Negative); Nitrate Urine Positive (Negative); Urobilinogen Urine Norm (Negative)
[2020-08-08 13:03] LABS: Bacteria Urine 2+ /hpf; RBC Urine 0-4 /hpf (0-2); Squamous Epithelial Cell Urine 0-4 /hpf (0-5); Transitional Epi Cells Urine 0-4 /hpf; WBC Urine >100 /hpf (0-5)
[2020-08-08 13:04] LABS: Add Urine Culture? Yes
--- NOTE | 2020-08-08 13:27 | US_ITS ---
WS: [id number] RIGHT UPPER QUADRANT ULTRASOUND HISTORY: hyperbilirubinemia, sepsis COMPARISON: None available. Liver: 17.0 cm in length. Normal size liver. No bile duct dilatation or mass. Gallbladder: Normally distended gallbladder with no stones or wall thickening. CBD: 0.3 cm Pancreas: Normal size and echogenicity. Right kidney: 9.9 cm in length. Very minimal prominence of the renal pelvis. Aorta and IVC: Unremarkable abdominal aorta and IVC. No ascites. US/US gall bladder [id number] IMPRESSION: Normal gallbladder. Mildly prominent RIGHT renal pelvis.
--- NOTE | 2020-08-08 16:10 | P.HP_ITS ---
Providers/Chief Complaint Admitting Physician: Chuck Troncoso Primary Care Provider: Kevin Dillard Chief Complaint: CP/SOB SINCE SAT History of Present Illness Pleasant 34 year old with history of fibromyalgia, ADHD who has been feeling unwell since Saturday, with body aches, dry heaves, poor appetite, and developing right flank pain. Also having a headache, some dyspnea, with tachypnea noted in ER. She is also noted with sinus tachycardia, heart rate 98- 119. Afebrile. With leukocytosis, WBC count 14.9. On presentation blood pressure noted soft, with response to IV fluid bolus. Saturation 92% on room air. Respiratory rate 20. She is also noted to have D-dimer of 4.03, ABG 7.34/27.6/83 on 21% O2, sodium 132, potassium 3.2, bicarbonate 18, anion gap 12.2. BUN 17, creatinine 1.6. Lactic acid 2.2-1.3. Ferritin 306. T bili 1.3. AST 19, ALT 46. Alk phos 155. Troponin is 6. CRP 426.7. Total protein 6.7. Albumin 3.7. Globulin 3. Procalcitonin 5.53. Beta hCG negative. UA with 1+ protein, 2+ blood, positive nitrate, positive leukocyte esterase, 0-4 RBC, more than 100 WBC, 0-4 squamous epithelial cells. 2+ bacteria. Negative urine ketones. Rapid influenza negative. Rapid COVID-19 negative. PCR COVID-19 requested, pending. EKG with sinus tachycardia, short TN interval. Head CT unremarkable. Chest x-ray unremarkable. CTA chest without PE. No pneumonia. Enlarged liver, no bile duct dilation appreciated. Renal ultrasound with early changes of mild pyelonephritis involving right kidney suspected. No abscess or high-grade obstruction. Gallbladder ultrasound with mildly prominent right renal pelvis. Blood cultures collected. Urine culture collected. She received 1000 mL NaCl, 1000 mL LR. Morphine, Zofran, ceftriaxone, azithromycin. Review of Systems Const: Reports: body aches, change in appetite and malaise Eyes: Denies: change in vision or eye redness ENMT: Denies: throat pain, oral sores or ear or mastoid pain Card: Denies: chest pain, edema, pre-syncope or dyspnea on exertion Resp: Reports: other (tachypnea); Denies: change in phlegm color or hemoptysis GI: Reports: nausea; Denies: abdominal pain, vomiting (dry heaves), diarrhea, constipation, hematochezia or melena : Reports: flank pain; Denies: urinary frequency or hematuria Musc: Denies: back pain, joint swelling or joint redness Skin/Breast: Denies: rash, sores or new lesions Neuro: Denies: headache(s), numbness in extremities, weakness in extremities, dizziness, confusion or seizure-like activity Endo: Denies: polyuria or polydipsia Ney/Lymph: Denies: easy bleeding or purpura All/Imm: Denies: urticaria, throat swelling or tongue swelling Medications/Allergies Home Medications Medication Instructions Recorded Confirmed Last Taken Type dextroamphetamine-amphetamine See Rx Instructions .ROUTE .COMPLEX 08/08/20 08/08/20 08/05/20 History hydrocodone-acetaminophen 1 tab PO Q8H PRN 08/08/20 08/08/20 Unknown History sertraline 50 mg PO DAILY@2100 08/08/20 08/08/20 08/07/20 History Allergies Allergy/AdvReac Type Severity Reaction Status Date / Time No Known Allergies Allergy Verified 08/08/20 08:49 PFSH Acute PFSH: Medical History ADHD Fibromyalgia Surgical History (Updated 08/08/20 @ 16:14 by Chuck Troncoso MD) H/O bilateral breast reduction surgery H/O dilation and curettage Family History Other No significant family history Social History Smoking and tobacco status: never smoked Alcohol intake: current Alcohol intake frequency: holidays/special occasions only Substance/Drug Use: never Lives independently: Yes Household members: children Current occupational status: employed Vitals/I&O/Wt Last Vital Signs Temp 98.4 F 08/08/20 08:43 Pulse 116 H 08/08/20 15:14 Resp 17 08/08/20 15:14 BP 95/65 08/08/20 15:14 Pulse Ox 98 08/08/20 15:14 Weight last 48 hrs Weight 48.081 kg Physical Exam Const: COMMON NORMALS: no acute distress, patient oriented x3 and alert GENERAL APPEARANCE: cooperative ORIENTATION/CONSCIOUSNESS: Yes awake HENMT: COMMON NORMALS: oropharynx normal Neck/C-Spine: COMMON NORMALS: no JVD Resp: COMMON NORMALS: normal respiratory effort and clear to auscultation bilaterally AUSCULTATION: clear to auscultation bilaterally Cardio: COMMON NORMALS: no JVD, regular rhythm, S1 normal heart sound present, S2 normal heart sound present and No murmurs present (Cardio) RHYTHM: regular rhythm HEART SOUNDS: S1 normal heart sound present and S2 normal heart sound present GI: COMMON NORMALS: Normal to inspection, nondistended, normoactive bowel sounds present, Soft to palpation and non-tender PALPATION: Yes Soft to palpation Extremity: COMMON NORMALS: no joint enlargement and no pedal edema Neuro: COMMON NORMALS: patient oriented x3 and moves all extremities Skin: COMMON NORMALS: no rashes or lesions noted GENERAL SKIN EXAM: no rashes or lesions noted Data : 08/08/20 08:53 08/08/20 08:53 Micro: Microbiology 08/08/20 09:34 Blood Culture - Preliminary Blood SPECIMEN COLLECTED A&P Assessment and plan (1) Sepsis: Severe sepsis, possible septic shock, with hypotension, mean arterial pressure as low as 54 noted in ER during my visit. Appears to be fluid responsive so far. With dehydration. Poor oral intake for several days. With acute kidney injury. Being admitted to ICU. Additional IV fluid bolus requested. Monitor blood pressure. Complicated urinary tract infection with pyelonephritis. Cultures requested. Discussed with her we will switch antibiotics to Zosyn. She is in agreement. Additionally discussed cholestatic pattern abnormality of liver parameters. Right upper quadrant ultrasound assessed. Pain appears mostly in the right flank. Some right side abdominal tenderness, but again less compared to the right flank. Preliminary ultrasound so far not suggestive of biliary disease, apart from hepatomegaly which will need additional follow-up. With malaise, mild headache, nausea, sepsis, requested COVID-19 PCR. Follow results. Status: Acute Qualifiers: Sepsis acute organ dysfunction status: with acute organ dysfunction Sepsis type: sepsis due to unspecified organism Severe sepsis shock status: with septic shock (2) Pyelonephritis: As above. Follow-up cultures. Continue Zosyn. Status: Acute (3) Acute kidney injury: Prerenal acute kidney injury, with sepsis, hypotension presentation. Responsive to IV fluids so far. Rehydrate. Avoid nephrotoxins. Monitor urine output. Renal function. Status: Acute (4) Dehydration: As above. Status: Acute (5) Hyperglycemia: Noted hyperglycemia, glucose 256 without history of diabetes. Possibly sepsis related. Does have metabolic acidosis. Consideration was given also to other causes of metabolic acidosis including DKA, although urine ketones are negative. Will check serum ketones. At this time will follow glucose. SSI insulin. Check A1c. Status: Acute (6) Hypokalemia: Receiving LR. Follow potassium. Replace as needed. Status: Acute (7) Cholestasis: Cholestatic pattern liver parameter abnormality, T bili 1.3, alk phos 155. Hepatomegaly noted on liver imaging. So far no suggestion of functional cholecystitis, cholangitis picture. Follow-up final results of ultrasound. Show mild right renal pelvic dilation. Otherwise unremarkable. Discussed with her noted hepatomegaly. Will need follow-up of this for additional etiology. Only drinks occasional alcohol. Will request hepatitis panel. Will need follow-up for assessment for other possible etiologies, or if none found, possible fatty liver disease. She is in agreement. Status: Acute (8) Elevated d-dimer: Unclear cause of elevation of D-dimer. Does not have any unilateral swelling. Does have tachycardia, was having tachypnea, although these appear to be related to sepsis, metabolic acidosis. No PE noted on CTA. Suspect perhaps this may be related to sepsis. Complicated UTI. At this time continue prophylaxis against VTE. Status: Acute (9) Elevated C-reactive protein: Incidentally noted, possibly related to acute illness, sepsis, UTI developing over several days. Consider follow-up to reassess for level subsiding with improvement in her condition/symptoms. Status: Acute Additional A&P Information Fibromyalgia: At home takes hydrocodone prescribed to her by her family provider. Continue cautiously for now. ADHD: At home takes Adderall. Follows with PCP. Attestations Medical Necessity Statement*: Admission of over 2 midnights is going to be needed for assessment management of sepsis, complicated urinary tract infection, hypokalemia, acute kidney injury, and additional comorbidities as above. Coding Level of Care Code Acute Individual Pension Adviser for Rudy Geller Diagnoses Sepsis A41.9 Sepsis acute organ dysfunction status: with acute organ dysfunction Sepsis type: sepsis due to unspecified organism Severe sepsis shock status: with septic shock Pyelonephritis N12 Acute kidney injury N17.9 Dehydration E86.0 Hyperglycemia R73.9 Hypokalemia E87.6 Cholestasis K83.1 Elevated d-dimer R79.89 Elevated C-reactive protein R79.82
[2020-08-08 16:53] LABS: Ketone (Acetest) Serum Negative (Negative)
[2020-08-08] MEDS: acetaminophen 325 mg Tablet 650 MG PO (17:42)
[2020-08-08] MEDS: lactated ringers 1,000 ML 999 ML IV (17:43)
[2020-08-08] MEDS: heparin 5,000 unit/mL INJ 1 mL 5000 UNIT SUBCUT (18:01)
[2020-08-08] MEDS: piperacillin-tazobactam 3.375 GM in sodium chloride 0.9% (plus) 50 ML IV (18:02)
[2020-08-08] MEDS: lactated ringers 1,000 ML 100 ML IV (18:04)
[2020-08-08 18:18] LABS: Creatine Phosphokinase 38 U/L (26-192)
--- NOTE | 2020-08-08 19:44 | PC.NURSE ---
if pt. cant make health care decisions she wants kiara garber to make decisions ph. number [phone]
[2020-08-08 20:08] LABS: Estmated Average Glucose 88; Hemoglobin A1C 4.7 % (4.0-6.0)
[2020-08-08] MEDS: HYDROcodone-acetaminophen 7.5-325 mg Tablet 1 TAB PO (20:08)
[2020-08-08] MEDS: famotidine 20 mg/2 mL INJ IVP (20:09)
[2020-08-08] MEDS: sertraline 50 mg Tablet PO (20:09)
[2020-08-08 20:24] LABS: Glucose Point of Care 176 mg/dL (70-110)
[2020-08-08 20:24] LABS: Glucose Point of Care 179 mg/dL (70-110)
[2020-08-08 20:49] LABS: Hepatitis A Antibody IgM Non-Reactive (Nonreactive); Hepatitis B Core IgM Non-Reactive (Nonreactive); Hepatitis B Surface Antigen Non-Reactive (Nonreactive); Hepatitis C Virus Antibody Non-Reactive (Nonreactive)
[2020-08-09] VITALS (100 sets, daily range): BP systolic 86–113; BP diastolic 51–81; PULSE 64–103; RESP 16–20; TEMP 36.6–37.9; O2SAT 87–100
[2020-08-09] MEDS: piperacillin-tazobactam 3.375 GM in sodium chloride 0.9% (plus) 50 ML IV ×3 (01:57→18:07)
[2020-08-09] MEDS: heparin 5,000 unit/mL INJ 1 mL 5000 UNIT SUBCUT ×3 (01:58→18:08)
[2020-08-09] MEDS: morphine 4 mg/mL SDV 1 mL IVP ×4 (02:12→23:51)
[2020-08-09] MEDS: ondansetron 2 mg/ML SDV 2 mL 4 MG IVP ×2 (02:36→19:24)
[2020-08-09 04:05] LABS: Hematocrit 29.8 % (37.0-47.0); Hemoglobin 10.1 g/dL (11.5-15.3); Mean Corpuscular HGB Conc 33.9 g/dL (30.0-36.0); Mean Corpuscular Hemoglobin 31.6 pg (28.0-34.0); Mean Corpuscular Volume 93.1 fL (81-99); Mean Platelet Volume 12.2 fL (7.4-10.4); Platelet Count 142 10^3/cmm (130-400); Red Cell Distribution Width 12.5 % (12.1-15.1)
[2020-08-09 04:24] LABS: Alanine Aminotransferase 39 U/L (0-33); Albumin Level 2.9 g/dL (3.5-5.2); Alkaline Phosphatase 127 IU/L (35-105); Anion Gap 12.9 (5-19); Aspartate Amino Transferase 21 U/L (0-32); Blood Urea Nitrogen 25 mg/dL (6-20); Calcium 7.7 mg/dL (8.5-10.5); Carbon Dioxide 22 mmol/L (22-29); Chloride 103 mmol/L (98-107); Globulin 2.7 g/dL (1.3-4.6); Glomerular Filtration Rate 30.6 mL/min (90-130); Glucose 131 mg/dL (65-115); Osmolality Calculated 284 mOsm/kg (285-295); Potassium 3.9 mmol/L (3.5-5.1); Sodium 134 mmol/L (136-145); Total Bilirubin 1.3 mg/dL (0.15-1.2); Total Protein 5.6 g/dL (6.6-8.7)
[2020-08-09 04:37] LABS: Absolute Segmented Neutrophil 14.5 10/cmm (1.6-7.1); Band Neutrophils Absolute 12.5 10^3/cmm (0.0-1.2); Eosinophils 0 %; Lymphocytes 5 %; Lymphocytes Absolute 1.5 10^3/cmm (1.2-3.4); Monocytes Absolute 0.6 10^3/cmm (0.1-0.6); Platelet Estimate Decreased (Normal); Segmented Neutrophils 50 %; Total Cells Counted 100 (0-100)
--- NOTE | 2020-08-09 05:10 | PC.NURSE ---
Patient admitted for polynephritis, experiencing some hypotension, started her on levo at 0830, started a new IV so she would be more comfortable. Informed Dr Ibrahim about positive blood cultures at 0030 and asked for a prn order of zofran at 0230. Patient has been resting comfortably most of the night, her o2 sats dropped a bit early on in the night so I placed her on 2 L nc she has been tolerating that fine. Pain has been well managed with her home hydrocodone and breakthrough iv Morphine.
[2020-08-09] MEDS: HYDROcodone-acetaminophen 7.5-325 mg Tablet 1 TAB PO ×3 (06:20→22:14)
--- NOTE | 2020-08-09 09:33 | PM.PN ---
Subjective Subjective: Interval history: Perhaps slightly better, but still pain in the right flank, still achy all over. Headache, frontal, wrapping around the side of the head, throbbing. Vitals/I&O/Wt Last Vital Signs Temp 97.8 F 08/09/20 02:15 Pulse 73 08/09/20 07:00 Resp 18 08/09/20 07:53 BP 102/69 08/09/20 07:00 Pulse Ox 94 08/09/20 07:53 08/08/20 08/09/20 08/09/20 22:59 06:59 14:59 Intake Total 190 / 190 643.333 / 833.333 185.187 / 185.187 Output Total 1200 / 1200 Balance 190 / 190 -556.667 / -366.667 185.187 / 185.187 Weight last 48 hrs Weight 53.977 kg Weight 48.081 kg Physical Exam Const: COMMON NORMALS: no acute distress, patient oriented x3 and alert GENERAL APPEARANCE: cooperative ORIENTATION/CONSCIOUSNESS: Yes awake HENMT: COMMON NORMALS: oropharynx normal Neck/C-Spine: COMMON NORMALS: no JVD Resp: COMMON NORMALS: normal respiratory effort and clear to auscultation bilaterally AUSCULTATION: clear to auscultation bilaterally Cardio: COMMON NORMALS: no JVD, regular rhythm, S1 normal heart sound present, S2 normal heart sound present and No murmurs present (Cardio) RHYTHM: regular rhythm HEART SOUNDS: S1 normal heart sound present and S2 normal heart sound present GI: COMMON NORMALS: Normal to inspection, nondistended, normoactive bowel sounds present, Soft to palpation and non-tender PALPATION: Yes Soft to palpation Extremity: COMMON NORMALS: no joint enlargement and no pedal edema Neuro: COMMON NORMALS: patient oriented x3 and moves all extremities SENSORIUM/ORIENTATION: Yes alert Skin: COMMON NORMALS: no rashes or lesions noted GENERAL SKIN EXAM: no rashes or lesions noted Urinary Catheter Management^: Mustafa: Cath Placed During This Visit: yes Reason for Continuing Indwelling Catheter: Accurate Measurement of Urinary Output in Critically Ill Patients Urinary Catheter Date of Insertion: 08/08/20 Urinary Catheter Time of Insertion: 17:30 Data : 08/09/20 03:23 08/09/20 03:23 Micro: Microbiology 08/08/20 09:34 Blood Culture - Preliminary Blood 08/08/20 12:27 Urine Culture - Preliminary Urine Catheterized Gram Negative Rods A&P Assessment and plan (1) Sepsis: Septic shock, started on pressors last night as noted without further response to IV fluid by NICOM assessment. Up as high as 4 mcg/min, weaning down, currently down to 2, and appears may be able to discontinue this morning. Discussed with her gram-negative rods growing in urine. Continue Zosyn at this time. Follow-up culture results. Overall her condition appears to be improving, although discussed with her also increase in leukocytosis, as well as kidney injury creatinine rise to 1.9. Monitor I&O. Maintain blood pressure. She is afebrile. Tachycardia improved. She is feeling slightly better, although still having right flank pain. Discussed with her as well regarding results of renal and right upper quadrant ultrasounds. Discussed mild right renal pelvic prominence. With the amount of pain she has been having, discussed that it sounds like she may have passed a small stone which is now gone. But also discussed possibility of some underlying congenital stenosis. Due to this discussed would like to refer her for follow-up with urology for additional assessment. Follow-up COVID-19 PCR. Metabolic acidosis is improving. Lactic acid was normal. Urine and serum ketones negative. Status: Acute Qualifiers: Sepsis acute organ dysfunction status: with acute organ dysfunction Sepsis type: sepsis due to unspecified organism Severe sepsis shock status: with septic shock (2) Pyelonephritis: As above. Gram-negative rods. Follow-up cultures. Continue Zosyn. Mildly prominent right renal pelvis. Follow-up with urology. Status: Acute (3) Acute kidney injury: Received fluid challenge. Worsening of renal function today, suspect related to sepsis, septic shock. Producing urine. Monitor urine output, renal function. Maintain blood pressures, avoid nephrotoxins. No high-grade obstructive changes on imaging. Status: Acute (4) Dehydration: As above. Status: Acute (5) Hyperglycemia: Suspect related to sepsis, septic shock. A1c 4.7. Urine and serum ketones negative. Monitor glucose. Mild SSI. Status: Acute (6) Hypokalemia: Replaced. Follow potassium. Status: Acute (7) Cholestasis: Cholestatic pattern liver parameter abnormality, T bili 1.3, alk phos 155. Hepatomegaly noted on liver imaging. So far no suggestion of functional cholecystitis, cholangitis picture. Right upper quadrant US with mild right renal pelvic dilation no biliary pathology. Hepatomegaly as discussed with her. Will need follow-up of this for additional etiology of hepatomegaly. Only drinks occasional alcohol. Negative hepatitis panel. Will need follow-up for assessment for other possible etiologies, or if none found, possible fatty liver disease. Status: Acute (8) Elevated d-dimer: Unclear cause of elevation of D-dimer. Does not have any unilateral swelling. Does have tachycardia, was having tachypnea, although these appear to be related to sepsis, metabolic acidosis. No PE noted on CTA. Suspect perhaps this may be related to sepsis. Complicated UTI. At this time continue prophylaxis against VTE. Status: Acute (9) Elevated C-reactive protein: Incidentally noted, suspect related to acute illness, sepsis, UTI developing over several days. Consider follow-up to reassess for level subsiding with improvement in her condition/symptoms. Status: Acute Additional A&P Information Fibromyalgia: At home takes hydrocodone prescribed to her by her family provider. Continue cautiously for now, although hydrocodone was not adequate control her pain from what she had told the nurse. Intensified pain control with morphine. Which appears to be doing better, although is contributing to her soft blood pressure. Headache: Has history of migraines, currently having frontal headache, throbbing, with some radiation around the right side of the head. Appears to be part of her generalized malaise secondary to sepsis. Pending COVID-19 PCR. She requested for nalbuphine, however, discussed with her we do not have this medication, although it also is not a very good choice for a headache. For now continue acetaminophen as needed, will discuss with nursing staff cold compresses, maintain darkened, quiet environment as possible in the room. CT head was unremarkable. No focal neurologic deficits. ADHD: At home takes Adderall. Follows with PCP. Attestations Medical Necessity Statement*: Continue admission for assessment management of sepsis, septic shock, complicated UTI, pyelonephritis, with metabolic acidosis, acute kidney injury. 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
[2020-08-09 09:34] LABS: Glucose Point of Care 110 mg/dL (70-110)
[2020-08-09] MEDS: famotidine 20 mg/2 mL INJ IVP ×2 (10:00→21:47)
[2020-08-09] MEDS: acetaminophen 325 mg Tablet 650 MG PO (12:03)
[2020-08-09 12:05] LABS: Glucose Point of Care 96 mg/dL (70-110)
[2020-08-09 17:14] LABS: Glucose Point of Care 106 mg/dL (70-110)
[2020-08-09 18:31] LABS: Quest SARS-CoV-2 RNA NOT DETECTED (NOT DETECTED)
[2020-08-09] MEDS: HYDROmorphone 1 mg/mL INJ 1 mL 0.5 MG IVP (19:24)
[2020-08-09 19:57] LABS: Glucose Point of Care 92 mg/dL (70-110)
[2020-08-09] MEDS: sertraline 50 mg Tablet PO (21:47)
[2020-08-10] VITALS (59 sets, daily range): BP systolic 90–115; BP diastolic 53–78; PULSE 78–101; RESP 14–30; TEMP 36.7–38.1; O2SAT 89–99
[2020-08-10] MEDS: piperacillin-tazobactam 3.375 GM in sodium chloride 0.9% (plus) 50 ML IV ×3 (02:47→18:59)
[2020-08-10] MEDS: heparin 5,000 unit/mL INJ 1 mL 5000 UNIT SUBCUT ×3 (02:47→19:00)
[2020-08-10] MEDS: morphine 4 mg/mL SDV 1 mL IVP (03:50)
[2020-08-10 03:52] LABS: Basophils # 0.2 10^3/uL (0.0-0.1); Basophils % 0.9 %; Eosinophils # 0.1 10^3/uL (0.0-0.8); Eosinophils % 0.5 %; Hematocrit 33.1 % (37.0-47.0); Hemoglobin 10.8 g/dL (11.5-15.3); Lymphocytes % 5.7 %; Mean Corpuscular HGB Conc 32.6 g/dL (30.0-36.0); Mean Corpuscular Hemoglobin 31.4 pg (28.0-34.0); Mean Corpuscular Volume 96.2 fL (81-99); Monocytes # 0.6 10^3/uL (0.2-0.9); Monocytes % 3.3 %; Neutrophils # 16.26 10^3/uL (1.8-7.7); Neutrophils % 88.7 %; Nucleated Red Blood Cells % 0 %; Platelet Count 132 10^3/cmm (130-400); Red Blood Count 3.44 10^6/uL (4.1-5.3); Red Cell Distribution Width 12.9 % (12.1-15.1); White Blood Count 18.3 10^3/uL (4.0-10.0)
[2020-08-10 04:08] LABS: Alanine Aminotransferase 33 U/L (0-33); Alkaline Phosphatase 146 IU/L (35-105); Anion Gap 14.7 (5-19); Aspartate Amino Transferase 14 U/L (0-32); Blood Urea Nitrogen 22 mg/dL (6-20); Calcium 8.5 mg/dL (8.5-10.5); Carbon Dioxide 24 mmol/L (22-29); Chloride 101 mmol/L (98-107); Globulin 3.5 g/dL (1.3-4.6); Glomerular Filtration Rate 34.8 mL/min (90-130); Glucose 100 mg/dL (65-115); Osmolality Calculated 285 mOsm/kg (285-295); Potassium 3.7 mmol/L (3.5-5.1); Sodium 136 mmol/L (136-145); Total Bilirubin 0.8 mg/dL (0.15-1.2); Total Protein 6.5 g/dL (6.6-8.7)
[2020-08-10 04:17] LABS: Slide Review Slide Review Perform
--- NOTE | 2020-08-10 06:27 | PC.NURSE ---
Shift Summary Patient rested most of the day, was more alert at around 10pm and ate some dinner, Patient had good urine output and has been more alert, off of her pressers for 24hours now. She should be able to move out of the ICU today and be on med surge for some Iv antibiotic therapy. She has done well throughout the night, required a small amount of oxygen while resting, the only challenge is managing her pain. Hopefully she will be able to get up and out of bed today.
[2020-08-10] MEDS: HYDROcodone-acetaminophen 7.5-325 mg Tablet 1 TAB PO ×2 (08:55→16:12)
[2020-08-10] MEDS: famotidine 20 mg/2 mL INJ IVP ×2 (08:56→21:02)
--- NOTE | 2020-08-10 09:29 | P.PN_ITS ---
Subjective Subjective: Interval history: She is still hurting in the right flank. Pain somewhat radiating to the back and head. Yesterday for breakthrough pain we tried a dose of Dilaudid. She states that this worked much better, requests if we are able to switch from morphine to pain under better control. Vitals/I&O/Wt Last Vital Signs Temp 98.0 F 08/10/20 03:30 Pulse 91 08/10/20 07:15 Resp 16 08/10/20 03:50 BP 99/58 08/10/20 07:15 Pulse Ox 99 08/10/20 07:15 08/09/20 08/10/20 08/10/20 22:59 06:59 14:59 Intake Total 830 / 1442.540 360 / 1802.540 50 / 50 Output Total 800 / 800 1000 / 1800 Balance 30 / 642.540 -640 / 2.540 50 / 50 Weight last 48 hrs Weight 54.431 kg Weight 53.977 kg Physical Exam Const: COMMON NORMALS: no acute distress, patient oriented x3 and alert GENERAL APPEARANCE: cooperative ORIENTATION/CONSCIOUSNESS: Yes awake HENMT: COMMON NORMALS: oropharynx normal Neck/C-Spine: COMMON NORMALS: no JVD Resp: COMMON NORMALS: normal respiratory effort and clear to auscultation bilaterally AUSCULTATION: clear to auscultation bilaterally Cardio: COMMON NORMALS: no JVD, regular rhythm, S1 normal heart sound present, S2 normal heart sound present and No murmurs present (Cardio) RHYTHM: regular rhythm HEART SOUNDS: S1 normal heart sound present and S2 normal heart sound present GI: COMMON NORMALS: Normal to inspection, nondistended, normoactive bowel sounds present, Soft to palpation and non-tender PALPATION: Yes Soft to palpa tion Extremity: COMMON NORMALS: no joint enlargement and no pedal edema Neuro: COMMON NORMALS: patient oriented x3 and moves all extremities SENSORIUM/ORIENTATION: Yes alert Skin: COMMON NORMALS: no rashes or lesions noted GENERAL SKIN EXAM: no rashes or lesions noted Urinary Catheter Management^: Mustafa: Cath Placed During This Visit: yes Reason for Continuing Indwelling Catheter: Accurate Measurement of Urinary Output in Critically Ill Patients Urinary Catheter Date of Insertion: 08/08/20 Urinary Catheter Time of Insertion: 17:30 Data : 08/10/20 03:25 08/10/20 03:25 Micro: Microbiology 08/08/20 12:27 Urine Culture - Final Urine Catheterized Escherichia coli 08/08/20 09:34 Blood Culture - Preliminary Blood A&P Assessment and plan (1) Sepsis: Septic shock resolved. Improving severe sepsis. Leukocytosis down to 18.3. So far no additional fever since 08/09 8 AM. This morning temp 99.6 Fahrenheit. There is improvement in kidney function, creatinine down to 1.7. Urine culture ID and cystoscopy pending this morning, but not appears to be back as E. coli resistant to Bactrim, otherwise sensitive. Continue IV antibiotic at this time. Transfer out of ICU. Continue to monitor blood pressures. Negative COVID-19 PCR. Status: Acute Qualifiers: Sepsis acute organ dysfunction status: with acute organ dysfunction Sepsis type: sepsis due to unspecified organism Severe sepsis shock status: with septic shock (2) Pyelonephritis: As above. Mildly prominent right renal pelvis. Follow-up with urology. Was having quite severe pain on admission, pain slightly better, but persists, responded better to Dilaudid, so she is requesting to switch. Status: Acute (3) Acute kidney injury: Continue to monitor and support blood pressure as needed.Mild improvement today. Creatinine down to 1.7. Monitor MELI. No high-grade obstructive changes on imaging. Status: Acute (4) Dehydration: Received IV rehydration. Status: Acute (5) Hyperglycemia: Resolved.Suspect related to sepsis, septic shock. A1c 4.7. Urine and serum ketones negative. Monitor glucose. Mild SSI. Status: Acute (6) Hypokalemia: Replaced. Status: Acute (7) Cholestasis: Cholestatic pattern liver parameter abnormality, T bili 1.3, alk phos 155. Hepatomegaly noted on liver imaging. So far no suggestion of functional cholecystitis, cholangitis picture. Right upper quadrant US with mild right renal pelvic dilation no biliary pathology. Hepatomegaly as discussed with her. Will need follow-up of this for additional etiology of hepatomegaly. Only drinks occasional alcohol. Negative hepatitis panel. Will need follow-up for a ssessment for other possible etiologies, or if none found, possible fatty liver disease. Status: Acute (8) Elevated d-dimer: Unclear cause of elevation of D-dimer. Does not have any unilateral swelling. Does have tachycardia, was having tachypnea, although these appear to be related to sepsis, metabolic acidosis. No PE noted on CTA. Suspect perhaps this may be related to sepsis. Complicated UTI. At this time continue prophylaxis against VTE. Status: Acute (9) Elevated C-reactive protein: Incidentally noted, suspect related to acute illness, sepsis, UTI developing over several days. Consider follow-up to reassess for level subsiding with improvement in her condition/symptoms. Status: Acute Additional A&P Information Fibromyalgia: At home takes hydrocodone prescribed to her by her family provider. Headache: Has history of migraines, currently having frontal headache, throbbing, with some radiation around the right side of the head. Appears to be part of her generalized malaise secondary to sepsis. Pending COVID-19 PCR. She requested for nalbuphine, however, discussed with her we do not have this medication, although it also is not a very good choice for a headache. For now continue acetaminophen as needed, will discuss with nursing staff cold compresses, maintain darkened, quiet environment as possible in the room. CT head was unremarkable. No focal neurologic deficits. ADHD: At home takes Adderall. Follows with PCP. Attempted to update her PCP yesterday. Attestations Medical Necessity Statement*: Continue admission for assessment management of improving sepsis, complicated UTI, pyelonephritis. 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
--- NOTE | 2020-08-10 09:49 | PC.CHAP ---
Pastoral Care Encounter/Spiritual Assessment Type of Contact [] Declined beader visit [] Patient/Family/Request visit [] Outpatient visit [] Follow-up visit [] Physician referral [] Code/Alert [x] Routine visit [] Staff referral [] Actively dying [] Patient sleeping [] Family support [] [] Out of room [] Palliative care [] [x] Receiving care in room [] Pre-surgical visit [] Trauma [] Long length of stay [x] ICU visit [] Other: Relational/Emotional Strength [] Patient feels connected with others/family/visitors/staff [] Distress [] Loneliness/isolation [] Abandonment Spirituality of Patient [] Person of [place] [] Attends Congregational of their [place] [] Believes in Prayer [] Reads Bible or Yazidism materials [] There are Spiritual issues to be addressed Employee Relations Assistant Interventions [x] Prayer [] Active listening [] Non-anxious presence [] Spiritual/emotional support [] Crisis/trauma care [] Spiritual counseling [] Bereavement support [] Provided bereavement packet [] Provided Bible/devotional materials [] Provided toy/stuffed animal, coloring book to patient or family member [] Provided Communion [] Anointing/[place] [] Salvation [x] Completed spiritual assessment [] Other: Impact on Illness or Injury [] Angry [] Fearful [] Anxious [] Often cries [] Exhaustion [] Unable to work [] Unable to attend scientologist [] Unable to walk/stand [] Unable to read [] Unable to drive [] Unable to eat/drink [] Unable to sleep [] Unable to be with family [] Patient intubated [] Other: Summary Time spent with patient
[2020-08-10] MEDS: HYDROmorphone 1 mg/mL INJ 1 mL 0.5 MG IVP ×2 (10:07→18:54)
[2020-08-10 16:37] LABS: Glucose Point of Care 93 mg/dL (70-110)
--- NOTE | 2020-08-10 17:57 | PC.NURSE ---
Report given to María. Patient transferred to [id number] in wheelchair with RN. Patient tolerated transfer well. Will continue to monitor.
[2020-08-10] MEDS: sertraline 50 mg Tablet PO (21:05)
[2020-08-11] VITALS (7 sets, daily range): BP systolic 94–100; BP diastolic 58–73; PULSE 79–86; RESP 16–18; TEMP 35.8–37.4; O2SAT 90–98
[2020-08-11] MEDS: piperacillin-tazobactam 3.375 GM in sodium chloride 0.9% (plus) 50 ML IV ×2 (02:23→09:06)
[2020-08-11] MEDS: heparin 5,000 unit/mL INJ 1 mL 5000 UNIT SUBCUT ×2 (02:23→09:35)
[2020-08-11] MEDS: HYDROmorphone 1 mg/mL INJ 1 mL 0.5 MG IVP (02:30)
[2020-08-11 06:32] LABS: Basophils # 0.1 10^3/uL (0.0-0.1); Basophils % 0.5 %; Eosinophils # 0.1 10^3/uL (0.0-0.8); Eosinophils % 0.7 %; Hematocrit 26.8 % (37.0-47.0); Hemoglobin 8.9 g/dL (11.5-15.3); Lymphocytes # 0.9 10^3/uL (0.8-4.8); Lymphocytes % 7.4 %; Mean Corpuscular HGB Conc 33.2 g/dL (30.0-36.0); Mean Corpuscular Hemoglobin 30.7 pg (28.0-34.0); Mean Corpuscular Volume 92.4 fL (81-99); Mean Platelet Volume 11.1 fL (7.4-10.4); Monocytes # 0.8 10^3/uL (0.2-0.9); Monocytes % 6.4 %; Neutrophils # 9.79 10^3/uL (1.8-7.7); Neutrophils % 83.8 %; Nucleated Red Blood Cells % 0 %; Platelet Count 186 10^3/cmm (130-400); Red Cell Distribution Width 12.6 % (12.1-15.1); White Blood Count 11.7 10^3/uL (4.0-10.0)
[2020-08-11 07:00] LABS: Alanine Aminotransferase 26 U/L (0-33); Albumin Level 2.8 g/dL (3.5-5.2); Alkaline Phosphatase 164 IU/L (35-105); Anion Gap 15.5 (5-19); Aspartate Amino Transferase 14 U/L (0-32); Blood Urea Nitrogen 16 mg/dL (6-20); Calcium 8.1 mg/dL (8.5-10.5); Carbon Dioxide 25 mmol/L (22-29); Chloride 102 mmol/L (98-107); Globulin 3.2 g/dL (1.3-4.6); Glomerular Filtration Rate 43.6 mL/min (90-130); Glucose 85 mg/dL (65-115); Osmolality Calculated 288 mOsm/kg (285-295); Potassium 3.5 mmol/L (3.5-5.1); Sodium 139 mmol/L (136-145); Total Bilirubin 0.7 mg/dL (0.15-1.2)
[2020-08-11] MEDS: famotidine 20 mg/2 mL INJ IVP (09:06)
[2020-08-11] MEDS: HYDROcodone-acetaminophen 7.5-325 mg Tablet 1 TAB PO (09:35)
--- NOTE | 2020-08-11 10:15 | US_ITS ---
WS: [id number] RENAL ULTRASOUND HISTORY: persistent R flank pain, pyelonephritis, GNR bacteremia COMPARISON: 08/08/2020 TECHNIQUE: 2-D and color Doppler imaging of the kidney submitted. Right kidney: 11.0 cm x 5.7 cm x 6.1 cm. RIGHT kidney is slightly enlarged. Very mild loss of the cortical medullary differentiation. No peric holecystic fluid or gallbladder wall thickening. Cortex is more edematous and thickened as compared t o the LEFT kidney. Left kidney: 11.7 cm x 5.7 cm x 4.6 cm. Normal echogenicity with no hydronephrosis or mass. Aorta: Normal. Urinary Bladder: Normal distention. US/US renal BI* [id number] IMPRESSION: 1. Enlarged RIGHT kidney with diffuse cortical thickening is probably edema re lated to pyelonephritis. No obstruction. 2.Negative LEFT kidney.
--- NOTE | 2020-08-11 14:48 | PM.DCS ---
Discharge Providers Date of Admission: 08/08/20 13:29 Date of Discharge: August 11, 2020 Attending Provider at Admission: Chuck Troncoso Attending Provider at Discharge: Chuck Troncoso Primary Care Provider: Kevin Dillard Diagnoses at Discharge Discharge Diagnosis (1) Sepsis: Status: Acute Qualifiers: Sepsis acute organ dysfunction status: with acute organ dysfunction Sepsis type: sepsis due to unspecified organism Severe sepsis shock status: with septic shock (2) Pyelonephritis: Status: Acute (3) Acute kidney injury: Status: Acute (4) Dehydration: Status: Acute (5) Hyperglycemia: Status: Acute (6) Hypokalemia: Status: Acute (7) Cholestasis: Status: Acute (8) Elevated d-dimer: Status: Acute (9) Elevated C-reactive protein: Status: Acute Reason for Visit Reason for Visit: CP/SOB SINCE SAT Hospital Course Hospital Course Pleasant 34-year-old lady with history of fibromyalgia, ADHD, was admitted and treated for sepsis, septic shock, with complicated urinary tract infection, right side pyelonephritis without high-grade obstruction, with right renal pelvic prominence noted on ultrasound without hydroureteronephrosis. Was treated with Zosyn during hospitalization. Received fluid challenge. Rehydration. Required pressor support transiently. Required IV morphine, Dilaudid for treatment of pain. On presentation also with headache which has since resolved. On presentation incidentally also noted hepatomegaly, initially cholestasis T bili 1.3, alk phos 155. Acute hepatitis panel negative. No abnormality otherwise noted on biliary ultrasound. This will need additional assessment and follow-up once she is out of acute condition. On presentation incidentally also had elevation of D-dimer, but with CT angiogram of the chest negative for PE, no suggestion of DVT elsewhere. Incidentally noted elevated CRP as high as 426.7. Urinalysis suggestive of urinary tract infection. Urine culture, as well as blood culture subsequently growing E. coli resistant to Bactrim. Her condition overall is quite significantly improved with resolution of septic shock, sepsis, she remains now afebrile, with normalization of sinus tachycardia, with leukocytosis down trended down to 11.7. D-dimer and CRP abnormalities are thought related likely to the sepsis and septic shock given overall improvement. Consider follow-up levels for normalization given degree of elevation. Discussed with her regarding E. coli bacteremia. Due to some persistence of right flank pain kidney ultrasound is repeated today, with noted some persistence of renal cortical edema, but no perinephric collections. Acute kidney injury noted on presentation, creatinine up to 1.6, next day 1.9 which was the worst, has been improving, currently down to 1.4. Please reassess renal function. Avoid nephrotoxic medications. Please reassess potassium level. Since she has been continually improving, feeling better, tolerating diet, she requests to continue her recovery at home. Will complete antibiotic course with additional 7 days of ciprofloxacin. Discussed with her also follow-up with urology due to her right renal pelvic prominence noted on ultrasonography. Physical Exam Const: COMMON NORMALS: no acute distress, patient oriented x3 and alert GENERAL APPEARANCE: cooperative and comfortable ORIENTATION/CONSCIOUSNESS: Yes awake OTHER: Reports she is feeling better. Pain is improving. She is eating well. Would like to return home. HENMT: COMMON NORMALS: oropharynx normal Neck/C-Spine: COMMON NORMALS: no JVD Resp: COMMON NORMALS: normal respiratory effort and clear to auscultation bilaterally AUSCULTATION: clear to auscultation bilaterally Cardio: COMMON NORMALS: no JVD, regular rhythm, S1 normal heart sound present, S2 normal heart sound present and No murmurs present (Cardio) RHYTHM: regular rhythm HEART SOUNDS: S1 normal heart sound present and S2 normal heart sound present GI: COMMON NORMALS: Normal to inspection, nondistended, normoactive bowel sounds present, Soft to palpation and non-tender PALPATION: Yes Soft to palpation Extremity: COMMON NORMALS: no joint enlargement and no pedal edema Neuro: COMMON NORMALS: patient oriented x3 and moves all extremities SENSORIUM/ORIENTATION: Yes alert Skin: COMMON NORMALS: no rashes or lesions noted GENERAL SKIN EXAM: no rashes or lesions noted Urinary Catheter Management^: Mustafa: Cath Placed During This Visit: yes, but has since been removed by the nurse Reason for Continuing Indwelling Catheter: Accurate Measurement of Urinary Output in Critically Ill Patients Urinary Catheter Date of Insertion: 08/08/20 Urinary Catheter Time of Insertion: 17:30 Date Urinary Catheter Removed: 08/10/20 Time Urinary Catheter Discontinued: 12:00 Discharge Data Data Completed and Pending: Completed Studies During Hospitalization Category Date Time Status CT angio chest PE protcl [id number] Urge nt Cat Scan 08/08/20 09:[address] head wo con* 7 0450 Urgent Cat Scan 08/08/20 08:59 Completed XR chest 1V eam ble [id number] Urgent Exams 08/08/20 09:00 Completed US gall bladder 7 6708 Urgent Ultrasound 08/08/20 13:27 Completed US renal BI* 7677 0 Routine Ultrasound 08/11/20 10:15 Completed US renal BI* 7677 0 Urgent Ultrasound 08/08/20 10:42 Completed Labs from last 24 hours 08/11/20 08/11/20 08/10/20 05:07 05:07 08:54 WBC 11.7 H RBC 2.90 L Hgb 8.9 L Hct 26.8 L MCV 92.4 MCH 30.7 MCHC 33.2 RDW 12.6 Plt Count 186 MPV 11.1 H Neut % (Auto) 83.8 Lymph % (Auto) 7.4 [place] % (Auto) 6.4 Eos % (Auto) 0.7 Baso % (Auto) 0.5 Neut # (Auto) 9.79 H Lymph # (Auto) 0.9 [place] # (Auto) 0.8 Eos # (Auto) 0.1 Baso # (Auto) 0.1 Nucleated RBC % (a uto) 0 Nucleated RBCs # 0.0 Sodium 139 Potassium 3.5 Chloride 102 Carbon Dioxide 25 Anion Gap 15.5 BUN 16 Creatinine 1.4 H GFR Calculation 43.6 L Glucose 85 POC Glucose 93 Calculated Osmolal ity 288 Calcium 8.1 L Total Bilirubin 0.7 AST 14 ALT 26 Alkaline Phosphata se 164 H Total Protein 6.0 L Albumin 2.8 L Globulin 3.2 Vitals: Last Vital Signs Temp 97.7 F 08/11/20 11:12 Pulse 83 08/11/20 11:12 Resp 18 08/11/20 11:12 BP 99/73 08/11/20 11:12 Pulse Ox 96 08/11/20 13:29 Discharge Plan Discharge Patient Disposition: Home Condition: Stable Prescriptions: New ciprofloxacin HCl 500 mg tablet 500 mg PO BID Qty: 14 RF: 0 Continued dextroamphetamine-amphetamine 30 mg tablet See Rx Instructions .ROUTE .COMPLEX RF: 0 hydrocodone-acetaminophen 7.5-325 mg tablet 1 tab PO Q8H PRN (Reason: Pain) RF: 0 sertraline 50 mg tablet 50 mg PO DAILY@2100 RF: 0 Discharge Orders: Discharge Order (Routine); Ordered 08/11/20 Ordered By: Chuck Troncoso Referrals: Don Gutierrez MD [Referring] - 4-7 days (Pyelonephritis, sepsis, incidental hepatomegaly. CRP elevation, incidental D-dimer elevation.) Obinna Mcdaniel MD [Physician] - 1 week (Pyelonephritis, sepsis, Prominent right renal pelvis) Discharge Diet: Advance as tolerated, Low Cholesterol and Low Fat Discharge Activity: Increase activity as tolerated Patient Instructions: Ciprofloxacin (By mouth), Acute Pyelonephritis (GEN), Sepsis (GEN), Opioid Safety Activity Restrictions/Additional Instructions: Please follow-up with your primary care doctor to confirm resolution and continued improvement after complicated urinary tract infection, pyelonephritis and sepsis. Please follow-up with urology due to noted prominence of right renal pelvis on ultrasound imaging. Please also have your primary care doctor follow-up your kidney function after kidney injury. Please avoid any NSAIDs like ibuprofen, Aleve, or other medications which may contribute to kidney injury. Please complete antibiotic course. Please discuss with your primary care doctor finding of enlarged liver, as this will need additional work-up and follow-up. Acute hepatitis panel was negative. Please avoid even social/small amounts of alcohol as these may long-term contribute to liver injury and scarring. Discharge Attestations Time Spent in Discharge Care*: greater than 30 min Quality Metrics Clinical Quality Measures During this hospital stay, did patient experience: None Coding Level of Care Code Acute Chg FW DC note Diagnoses Sepsis A41.9 Sepsis acute organ dysfunction status: with acute organ dysfunction Sepsis type: sepsis due to unspecified organism Severe sepsis shock status: with septic shock Pyelonephritis N12 Acute kidney injury N17.9 Dehydration E86.0 Hyperglycemia R73.9 Hypokalemia E87.6 Cholestasis K83.1 Elevated d-dimer R79.89 Elevated C-reactive protein R79.82
== END 2020-08-11 16:15 | disposition home or self-care (01) | DRG 871 ==
LOC: ER 13:54 → ICU 14:33 → MEDSURG 08-10 17:30
PROVIDERS: Admitting Provider Internal Medicine; Emergency Provider Physician Assistant; PCP Family Medicine; Visit Provider Internal Medicine
DX: A41.9 Sepsis, unspecified organism (principal); R65.21 Severe sepsis with septic shock; K83.1 Obstruction of bile duct; N10 Acute pyelonephritis; N17.9 Acute kidney failure, unspecified; N39.0 Urinary tract infection, site not specified; E87.2 Acidosis; Z16.29 Resistance to other single specified antibiotic; M79.7 Fibromyalgia; F90.9 Attention-deficit hyperactivity disorder, unspecified type; I95.9 Hypotension, unspecified; E86.0 Dehydration; R73.9 Hyperglycemia, unspecified; E87.6 Hypokalemia; R16.0 Hepatomegaly, not elsewhere classified; R51.9 Headache, unspecified; B96.20 Unspecified Escherichia coli [E. coli] as the cause of diseases classified elsewhere; Z79.891 Long term (current) use of opiate analgesic
CPT/HCPCS: 36415; 36416; 36600; 51702; 70450; 71045; 71275; 76705; 76770; 80051; 80053; 80074; 81001; 82009; 82330; 82550; 82728; 82805; 82962; 83036; 83605; 84145; 84484; 84703; 85007; 85025; 85378; 85384; 85610; 85730; 86140; 87040; 87077; 87086; 87186; 87205; 87426; 87635; 87804; 93005; 96365; 96367; 96372; 96375; 96376; 99285; J0456; J0696; J1170; J1644; J1815; J2270; J2405; J2543; J3490; J7030; J7050; Q9967

== ENCOUNTER → 2020-08-18 14:35 | Outpatient (BNVA) | payer BC, SELFPAY | PROVIDERS: PCP Family Medicine; Referring Provider Internal Medicine; Visit Provider Nurse Practitioner Family | DX: N12 Tubulo-interstitial nephritis, not specified as acute or chronic (principal); N39.0 Urinary tract infection, site not specified | CPT/HCPCS: 81003 ==

== ENCOUNTER → 2020-08-29 15:48 | Outpatient (BNVA) | payer BC, SELFPAY | PROVIDERS: PCP Family Medicine; Visit Provider Nurse Practitioner Family | DX: N39.0 Urinary tract infection, site not specified (principal) | CPT/HCPCS: 87086 ==

== ENCOUNTER → 2020-12-06 12:51 | Outpatient (BNVA) | payer BC, SELFPAY | PROVIDERS: PCP Family Medicine; Visit Provider Urology | DX: N39.0 Urinary tract infection, site not specified (principal) | CPT/HCPCS: 81003 ==

== ENCOUNTER → 2021-12-07 12:57 | Outpatient (BNVA) | payer BC, SELFPAY | PROVIDERS: PCP Family Medicine; Visit Provider Nurse Practitioner Family | DX: N39.0 Urinary tract infection, site not specified (principal) | CPT/HCPCS: 81003 ==